=== PATIENT | male | born 1930 | race Caucasian/White ===

== ENCOUNTER 2016-11-10 18:34 | Emergency (ER) | payer MEDICARE ==
--- NOTE | ~2016-11-10 | CT57 ---
[facility] A Service of [facility] RADIOLOGY TEXT RESULTS PATIENT: EZIO EUBANKS LOCATION: SED : 34 UNIT #: [id number] AGE: [address]: Quintin Walker DO SEX: M ORDER DR: [id number] [address] [address] [id number] E MR#: [id number] Acc #: [id number] NAME: EZIO EUBANKS : 1930 SEX: M STUDY DATE/TIME: 11/10/2016 20:06 UNIT: SED ROOM: STUDY DESCRIPTION: CT Chest Wo Cont Attending Physician: Quintin Walker D.O. Referring Physician: Eloy Mario M.D. Ordering Physician: Quintin Walker D.O. Primary Care Physician: Kristyn Lynch M.D. MEDICAL IMAGING REPORT This report is preliminary unless electronic signature is present. EXAM CT chest INDICATIONS Dyspnea for 1 week. Productive cough. Green sputum. Abnormal chest radiograph. TECHNIQUE CT of the thorax without contrast. Coronal and sagittal reconstructions were obtained. This CT exam was performed with one or more of the following radiation dose reduction techniques: Automatic exposure control, adjustment of mA and/or kV according to patient size, and iterative reconstruction. COMPARISON Chest radiograph dated 11/10/2016. FINDINGS There is a spiculated mass in the periphery of the right upper lobe measuring 4.7 x 3.6 x 3.7 cm. The mass abuts the anterior chest wall. There is some mild pleural thickening, however no obvious pleural invasion. The mass also abuts the right minor fissure. There is some mild nodularity along the pleura concerning for possible involvement. No pathologically enlarged mediastinal or hilar lymph nodes. Please note that sensitivity is diminished without the use of IV contrast. No pericardial or pleural effusion. There is a rounded area of presumed atelectasis in the medial right lower lobe. This area measures 2.8 x 1.4 x 2.9 cm. This can be followed. There is severe emphysema. There is a small low-attenuation right adrenal nodule measuring STS. [facility] A Service of [facility] RADIOLOGY TEXT RESULTS PATIENT: EZIO EUBANKS [place] [facility] [place] 32 UNIT #: [id number] AGE: [address]: Quintin Walker DO SEX: M ORDER DR: approximately 1 cm. This has a low attenuation, indicating a benign adenoma. No suspicious osseous abnormalities. IMPRESSION 1. 4.7 cm spiculated mass in the periphery of the right upper lobe, abutting the anterior chest wall and right minor fissure. 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 2. Slight nodularity along the right minor fissure could indicate pleural involvement, however, this is indeterminate. No erosion into the anterior chest wall. 3. No enlarged mediastinal or hilar lymph nodes. 4. Severe emphysema. 5. Area of ovoid nodularity in the medial right lower lobe measuring up to 2.8 cm. Given the pleural thickening and pleural calcifications in this area, I suspect this represents an area of rounded atelectasis, rather than a nodule and/or mass. This can be followed. Dictated by... Higinio Cunningham M.D. THIS IS AN ELECTRONICALLY VERIFIED REPORT Higinio Cunningham M.D. at 11/11/2016 7:56 AM JONNATHAN/mirta TD: 11/11/2016 00:02 JOB #: [id number] MEDICAL IMAGING REPORT Page 1 of 1
--- NOTE | ~2016-11-10 | CR72 ---
[facility] A Service of [facility] RADIOLOGY TEXT RESULTS PATIENT: EZIO EUBANKS LOCATION: SED : 32 UNIT #: [id number] AGE: [address]: Quintin Walker DO SEX: M ORDER DR: [id number] [address] [address] [id number] E MR#: [id number] Acc #: [id number] NAME: EZIO EUBANKS : 1930 SEX: M STUDY DATE/TIME: 11/10/2016 18:27 UNIT: SED ROOM: STUDY DESCRIPTION: CR Chest Single View Portable Attending Physician: Quintin Walker D.O. Referring Physician: Eloy Mario M.D. Ordering Physician: Eloy Mario M.D. Primary Care Physician: Kristyn Lynch M.D. MEDICAL IMAGING REPORT This report is preliminary unless electronic signature is present. EXAM Single view chest. DATE OF EXAM 11/10/2016 INDICATIONS Shortness of air for 1 week. COPD. FINDINGS Single AP view of the chest compared to 07/13/2011. There is a well-circumscribed mass in the right mid lung measuring 4.6 x 4.2 cm. I would recommend a CT scan to evaluate for primary pulmonary malignancy. There is prominence of right hilum which could represent right hilar adenopathy. No pleural effusion. IMPRESSION 1. Abnormal right lung mass. This measures up to 4.6 cm. Further evaluation of the CT chest is recommended. 2. Prominence of the right hilum could represent right hilar adenopathy. This can be further assessed with the CT scan. Dictated by... Higinio Cunningham M.D. THIS IS AN ELECTRONICALLY VERIFIED REPORT Higinio Cunningham M.D. at 11/11/2016 7:54 AM JONNATHAN/rashmi TD: 11/10/2016 22:46 JOB #: [id number] [facility] A Service of [facility] RADIOLOGY TEXT RESULTS PATIENT: EZIO EUBANKS LOCATION: [facility] [place] : 32 UNIT #: [id number] AGE: [address]: Quintin Walker DO SEX: M ORDER DR: MEDICAL IMAGING REPORT Page 1 of 1
--- NOTE | ~2016-11-10 | EKG ---
PATIENT: EZIO EUBANKS UNIT #: [id number] Ventricular Rate: 102 BPM Atrial Rate: 102 BPM P-R Interval: 178 ms QRS Duration: 96 ms Q-T Interval: 356 ms QTC Calculation(Bezet): 463 ms P Parmele: 7 degrees Calculated R Parmele: -29 degrees Calculated T Parmele: 70 degrees Diagnosis Line: Sinus tachycardia Diagnosis Line: Nonspecific ST and T wave abnormality Diagnosis Line: Abnormal ECG Diagnosis Line: No previous ECGs available Diagnosis Line: Confirmed by MADYSON RAINEY MD ([id number]) on Diagnosis Line: 11/24/2016 7:12:11 AM INTERPRETING SORAIDA URRUTIA
[~2016-11-10 18:34] MED LIST: ADVAIR INHALER INH; BACTRIM DS TABL1 TA1 PO; CLOPIDOGREL PO; COUMADIN PO; LORTAB 5/500 TA1 TA1 PO; LORTAB 5/500 TA1 TA2 PO; METOPROLOL SUCC25 MG PO; MIRTAZAPINE PO; PLAVIX PO; PREDNISONE PO; REMERON PO; SIMVASTATIN PO; VALTREX PO; WARFARIN PO; ZOCOR20 MG PO
[2016-11-10 18:39] LABS: BASOPHIL# 0.1 X10e3 (0-0.3); BASOPHIL% 0.9 % (0-2.5); EOSINOPHIL# 0.1 X10e3 (0-0.7); EOSINOPHIL% 1.6 % (0.0-7.0); HEMATOCRIT 44.9 % (38.0-50.0); HEMOGLOBIN 15.2 gm/dL (13.0-16.0); LYMPHOCYTE# 1.3 X10e3 (1.0-3.5); LYMPHOCYTE% 18.6 % (17.0-45.0); MEAN CELL VOLUME 92.4 FL (83-96); MEAN CORPUSCULAR HEMOGLOBIN 31.2 PG (28-34); MEAN CORPUSCULAR HGB CONC 33.8 g/dL (30-36); MEAN PLATELET VOLUME 7.8 FL (6.5-11.5); MONOCYTE# 0.7 X10e3 (0-1.0); MONOCYTE% 10.2 % (3.0-12.0); NEUTROPHIL# 4.9 X10e3 (1.5-7.1); NEUTROPHIL% 68.7 % (40-75); PLATELET COUNT 251 X10e3 (140-420); RED BLOOD COUNT 4.86 X10e (3.90-5.60); RED CELL DISTRIBUTION WIDTH 13.9 % (11.0-15.5); WHITE BLOOD COUNT 7.1 X10e3 (4.0-10.5)
[2016-11-10 18:40] LABS: DIFF IND NO
[2016-11-10 18:50] LABS: INR 1.9; PROTHROMBIN TIME (PATIENT) 21.6 SECONDS (9.5-12.4)
[2016-11-10 18:57] LABS: PARTIAL THROMBOPLASTIN TIME 33.5 SECONDS (25.6-38.1)
[2016-11-10 18:58] LABS: ALBUMIN SERUM 3.5 g/dL (3.5-5.0); BILIRUBIN, DIRECT 0.1 mg/dL (0.0-0.2); BILIRUBIN,INDIRECT 0.5 mg/dL (0.0-0.9); BILIRUBIN,TOTAL 0.6 mg/dL (0.2-2.0); BUN/CREATININE RATIO 15.71; CALCIUM SERUM 8.7 mg/dL (8.4-10.2); CREATININE SERUM 1.4 mg/dL (0.6-1.4); GLOM FILT RATE Estimated 45.8 mL/min (>60); POTASSIUM 4.3 mmol/L (3.5-5.1); PROTEIN TOTAL SERUM 7.7 g/dL (6.0-8.3)
[2016-11-10 18:58] LABS: POC - CKMB 1.2 ng/mL (0.0-7.9); POC - TROPONIN <0.05 ng/mL (<=0.05)
[2016-11-10 19:26] LABS: INFLUENZA A NEG (NEG); INFLUENZA B NEG (NEG)
[2016-11-10 20:42] LABS: POC - CKMB 1.4 ng/mL (0.0-7.9)
[2016-11-10 20:43] LABS: POC - TROPONIN <0.05 ng/mL (<=0.05)
== END 2016-11-10 22:38 | disposition left against medical advice (07) ==
LOC: SED 18:34
PROVIDERS: Emergency Medicine
DX: R91.8 Other nonspecific abnormal finding of lung field (principal); J44.9 Chronic obstructive pulmonary disease, unspecified; Z95.1 Presence of aortocoronary bypass graft; Z98.890 Other specified postprocedural states
CPT/HCPCS: 36415; 71010; 71250; 80048; 80076; 82553; 83874; 83880; 84484; 85025; 85610; 85730; 87804; 93005; 94640; 96374; 99284; J1100